=== PATIENT | female | born 1995 | race Caucasian/White ===

== ENCOUNTER 2017-08-05 01:47 | Emergency (ER) | payer SELFPAY ==
[~2017-08-05] VITALS: Ht 160 cm; Wt 86.0 kg
[~2017-08-05 01:47] MED LIST: PREN1TAB80 PO
[2017-08-05 01:49] VITALS: BP 128/90
[2017-08-05] MEDS ORDERED: ACET-66 PO (01:52)
[2017-08-05] MEDS ORDERED: BUPIVACAINE HCL/PF 0.25% 10 ML VIAL INJ ONE (02:00)
== END 2017-08-05 02:22 | disposition home or self-care (01) ==
LOC: EMS 01:47
DX: K08.89 Other specified disorders of teeth and supporting structures (principal)
CPT/HCPCS: 64400; 99284; J3490